=== PATIENT | male | born 1975 | race Caucasian/White ===

== ENCOUNTER 2020-04-04 13:21 | Outpatient (CLI) | payer OTHER, SELFPAY ==
--- NOTE | ~2020-04-04 | CT_ITS ---
EXAMINATION: CT abdomen wo con DATE: 04/04/2020 13:42 INDICATION: Ventral hernia TECHNIQUE: Computed tomography (CT) of the abdomen was performed without intravenous contrast. Automa fletcher exposure control and iterative reconstruction technique were employed. Exam dose: 1025.80 mGy-cm total exam DLP. COMPARISON: None. FINDINGS: The lung bases are clear. Normal heart size. No pericardial or pleural effusion. The liver, spleen, pancreas, and adrenal glands and kidneys are unremarkable on this limited noncontr ast examination normal caliber of the abdominal aorta. No intraperitoneal or retroperitoneal mass les ion or adenopathy or ascites is evident. No urinary tract calculus or hydroureteronephrosis is eviden t. There is an approximately 8.7 cm wide supraumbilical ventral midline abdominal wall hernia containing small bowel without obstruction or strangulation. No bowel obstruction, bowel wall thickening, pneum atosis or intraperitoneal free air is detected. Included skeletal structures are unremarkable. IMPRESSION: Supraumbilical small bowel containing midline ventral abdominal wall hernia Reviewed, dictated and finalized at [facility]. Reviewed, dictated and finalized at location [facility]. IMPRESSION: Supraumbilical small bowel containing midline ventral abdominal wa ll hernia
== END 2020-04-04 13:22 | disposition home or self-care (01) ==
LOC: ANHIMG 13:23
PROVIDERS: Visit Provider Surgery
DX: K43.9 Ventral hernia without obstruction or gangrene (principal)
CPT/HCPCS: 74150

== ENCOUNTER 2020-06-16 02:37 | Outpatient (CLI) | payer OTHER, SELFPAY ==
[2020-06-16 16:34] LABS: SARS-CoV-2 RNA PCR Negative
== END 2020-06-16 02:38 | disposition home or self-care (01) ==
LOC: ANHCOVIDDT 02:37
PROVIDERS: Visit Provider Surgery
DX: Z01.818 Encounter for other preprocedural examination (principal); Z11.59 Encounter for screening for other viral diseases
CPT/HCPCS: 87635; C9803; U0003

== ENCOUNTER 2020-06-16 08:23 | Outpatient (CLI) | payer OTHER, SELFPAY ==
[2020-06-16 08:55] LABS: Anion Gap 4 mmol/L (8-16); Blood Urea Nitrogen 12 mg/dL (9-20); Carbon Dioxide 36 mmol/L (22-30); Chloride 95 mmol/L (98-107); Estimated Glomerular Filt Rate > 60; Glucose 105 mg/dL (75-110); Potassium 4.8 mmol/L (3.4-5.0); Sodium 135 mmol/L (137-145)
--- NOTE | 2020-06-16 10:06 | ECG_ITS ---
Measurements Intervals [place] Rate: 77 P: 38 MN: 172 QRS: 41 QRSD: 90 T: 50 QT: 360 QTc: 408 Interpretive Statements SINUS RHYTHM DELAYED PRECORDIAL R/S TRANSITION BASELINE WANDER- V6 BORDERLINE ECG Electronically Signed On 06-16-2020 10:44:09 CDT by Zac Reza D.O.
== END 2020-06-16 08:24 | disposition home or self-care (01) ==
PROVIDERS: PCP Emergency Medicine; Visit Provider Surgery
DX: E11.9 Type 2 diabetes mellitus without complications (principal); Z87.891 Personal history of nicotine dependence
CPT/HCPCS: 36415; 80048; 86850; 86900; 86901; 87635; 93005; U0003

== ENCOUNTER 2020-06-19 11:57 | Observation (INO) | payer OTHER, SELFPAY ==
[2020-06-04 17:07] VITALS: BMI 55.9
[2020-06-18] VITALS (21 sets, daily range): BP systolic 93–163; BP diastolic 47–98; PULSE 78–104; RESP 12–24; TEMP 36.2–36.8; O2SAT 92–98
--- NOTE | 2020-06-18 07:19 | WPDHPUPDATE1 ---
History and Physical Update Update Date/Time: 06/18/20 07:19 History and Physical has been reviewed, including an updated exam of the patient. There are NO changes in the patient's condition. Risks, benefits, and alternatives have been discussed and questions answered. Patient agrees to proceed with procedure.
[2020-06-18] MEDS: LACTATED RINGERS 1,000 ML 30 ML IV CONT ×2 (07:20→11:08)
[2020-06-18] MEDS: KETOROLAC 15 MG/ML VIAL (*BKC) IV PUSH (07:21)
[2020-06-18] MEDS: ACETAMINOPHEN 500 MG TABLET 1000 MG PO ×2 (07:21→16:39)
--- NOTE | 2020-06-18 07:24 | WPDANESEPPF ---
Anes - Initial Pre Proc Eval Procedure: Operation Date: 06/18/20 07:30 Proposed Procedures p Laparoscopic Incarcerated Ventral Hernia Repair with Mesh, Davinci Assisted - Yogi Lopez DO Date/Time: 06/18/20 07:24 Surgeon: Yogi Lopez DO Pre Op Diagnosis: Incarcerated Ventral Hernia Patient Data Age: 44 Gender: M Height: 5 ft 11 in Weight: 182 kg Allergies Allergy/AdvReac Type Severity Reaction Status Date / Time codeine Allergy Severe mood swings Verified 06/18/20 07:08 Home Medications Medication Instructions Recorded Confirmed Type albuterol sulfate 90 mcg/actuation 1 inhalation INHALATION Q4H PRN 01/07/20 06/04/20 History aerosol inhaler omeprazole 20 mg capsule,delayed 20 mg PO DAILY 01/07/20 06/04/20 History release budesonide-formoterol [Symbicort] 2 puff INHALATION Q12H 06/04/20 06/04/20 History furosemide 20 mg PO DAILY 06/04/20 06/04/20 History lisinopril 5 mg PO DAILY 06/04/20 06/04/20 History metformin 500 mg PO DAILY 06/04/20 06/04/20 History montelukast 10 mg PO DAILY 06/04/20 06/04/20 History multivitamin [Daily Multi-Vitamin] 1 tablet PO DAILY 06/04/20 06/04/20 History Patient hx anesthesia problems: none Family hx anesthesia problems: none PMFSH Past Medical History Medical History Asthma Bronchitis GERD (gastroesophageal reflux disease) Seizure Thyroid disease Surgical History Surgical History Status post surgical removal of pilonidal cyst Family History Family History Mother Skin condition screening Social History Social History Smoking status: Smoker, status unknown Tobacco type: cigarettes and e-cigarettes/vaping Alcohol intake: never Substance use: never Living arrangements: with friend(s) Gender identity (if verbalized by the patient): Male Spiritual care concerns: No Anes - Eval Final PreProcedure Day of Procedure 06/18/20 07:24 Patient weight: super morbidly obese Heart: regular rate and rhythm Lungs: clear to auscultation Airway: Mallampati scale class II Neurological: alert and oriented Last oral intake: >/= 8 hours ASA classification: IV Emergent: no Anesthetic plan: proceed Anesthesia type and monitoring: general ETT and standard monitoring Informed Consent: The patient's anesthetic plan and its attendant risks including , [place], CVA, prolonged intubation, and ICU admission and benefits were discussed with the patient. Questions were solicited and answers provided to the satisfaction of the patient.
[2020-06-18] MEDS: ceFAZolin 3 GM/D5W 100 ML 100 ML IVPB (07:33)
[2020-06-18 07:34] LABS: Glucose Point of Care 124 (65-105)
--- NOTE | 2020-06-18 11:05 | PM.PROC ---
Procedure Note - Detailed Date of procedure: 06/18/20 Pre-op diagnosis: Incarcerated Ventral Hernia Post-op diagnosis: same Procedure performed: Laparoscopic incarcerated ventral hernia repair with Symbotex mesh, da Colleen assisted Description of procedure: Procedure as well as risks, benefits, and alternatives were discussed with the patient. Written consent was obtained and placed in chart prior to procedure. Patient was brought back to surgical suite. He was placed supine on operating table. Time-out was done to confirm patient and procedure. He was then intubated by the anesthesia department. His abdomen was prepped and draped in sterile fashion using chlorhexidine prep. A 5 millimeter incision was made in the left upper quadrant, and a 5 millimeter Optiview trocar was advanced through the abdominal layers under direct visualization. Once inside the abdominal cavity, carbon dioxide insufflation was used to create a pneumoperitoneum. His abdomen was inspected. An 8 millimeter incision was made in the left lower quadrant, and an 8 millimeter robotic trocar was placed under direct visualization. Another 8 millimeter incision was made in the left lateral abdomen, and an 8 millimeter robotic trocar was placed under direct visualization. Exparel was infiltrated along the lateral abdominal soto to perform a transversus abdominis plane block bilaterally. The 5 millimeter port was removed, the incision was extended to 12 millimeters, and a 12 millimeter air seal port was placed under direct visualization. A Connor-Gordon cone was also used to place an 0-Vicryl simple interrupted suture at this trocar site. The robotic arms were brought up to the patient's bedside and secured to the ports. The camera and instruments were inserted, and I then moved over to the robotic console and took control of the camera and instruments. After careful thorough inspection of the abdominal cavity, I began my dissection at the hernia. The incarcerated contents were reduced and then the hernia sac was carefully excised using hook electrocautery. I then measured the hernia size. The hernia measured 4 cm x 4 cm, and there was also a 2 cm umbilical hernia just inferior to this. The fascia was closed using a 1-Stratafix running suture in a vertical fashion. A 15 cm x 20 cm Symbotex mesh was then placed within the abdominal cavity. This was oriented vertically with the mesh centered on the hernia defect. The mesh was then secured along the perimeter using 2 0 V lock running absorbable suture. The repair was inspected, and one final inspection was made around the abdominal cavity. The robotic instruments were then removed, and the robotic arms were disengaged from the trocars. The ports were then removed under direct visualization, the camera was removed, and the pneumoperitoneum was released. The 0 Vicryl transfascial suture was tied down. The skin of the incisions was then approximated using 4-0 Monocryl subcuticular suture. Exofin glue was then applied on top. The patient was then awakened from anesthesia, extubated, and transferred to recovery. Implants: Symbotex mesh 15cm x 20cm Anesthesia: GETA and local (Exparel) Surgeon: Yogi Lopez DO Estimated blood loss (mL): 5 Drains: No Pathology: yes (Hernia sac) Complications: No immediate complications Condition: stable Disposition: observation Findings: Anil is a 44 y/o male who presents with a bulge above his umbilicus. He reports the bulge hurts with coughing, movement, and after meals. He can hear gurgling when the bulge reduces. He denies overlying skin changes. He reports having regular BM's without difficulty. CT abdomen w/o contrast was done at on 04/04/20 and showed a supraumbilical small bowel containing midline ventral abdominal wall hernia. He reports the bulge is very large and causes pain when he coughs or stands for too long. Discussions were made with the patient about his treatment options. I di
[2020-06-18 11:24] LABS: Glucose Point of Care 184 (65-105)
[2020-06-18] MEDS: fentaNYL CITRATE INJ (*CRX) 100 MCG/2 ML VIAL 25 MCG IV PUSH ×3 (11:58→13:27)
--- NOTE | 2020-06-18 12:11 | SUR.PHASEI ---
CARE ASSUMED OF PT. PT SITTING IN UPRIGHT POSITION, NRB MASK ON. OBSTRUCTING WHILE SITTING UPRIGHT. PT DOZING. SNORING. PT COLOR PALE, W,D. ABDOMEN OBESE, SOFT. MULTIPLE INCISIONS D/I. DR GARZA WAS NOTIFIED OF PT'S CONTINUING RESP STATUS PER KAMLA RN.
--- NOTE | 2020-06-18 12:25 | SUR.PHASEI ---
PT STATES PAIN 9/10 NOW. DOZING IN INTERVALS. REMAINS IN UPRIGHT POSITION. C/O LT SHOULDER PAIN/STIFFNESS. PT BECOMES SHORT OF BREATH WHILE TALKING. SNORES/OBSTRUCTS WHILE DOZING.
--- NOTE | 2020-06-18 12:30 | SUR.PHASEI ---
1228; DR GARZA AT BEDSIDE. PT C/O LT SHOULDER PAIN. STATES 'HE CANT LIFT ARM . DR GARZA EXPLAINING POSITIONING IN OR AND GAS IN ABDOMEN. PT C/O SOB. ALBUTEROL TX ORDERED. 1230; RESP THERAPY NOTIFIED.
--- NOTE | 2020-06-18 12:34 | SUR.PHASEI ---
RESP THERAPY HERE FOR ALBUTEROL TX
[2020-06-18] MEDS: ALBUTEROL SULFATE NEB 2.5 MG/0.5 ML INH INHALATION (12:35)
--- NOTE | 2020-06-18 12:43 | SUR.PHASEI ---
REPORT GIVEN TO KAMLA DAVID
--- NOTE | 2020-06-18 13:14 | SUR.PHASEI ---
[address] salas, and and dr ospina, they feel that the pt will benefit being in IMU to be closely monitored with breathing. pt is alertx3, vss on 4L nc.
[2020-06-18] MEDS: LACTATED RINGERS 1,000 ML 100 ML IV CONT (15:09)
--- NOTE | 2020-06-18 16:19 | ADMGEN ---
This patient, Anil Motta, was admitted to IMU Room 202 1410. Patient oriented to hospital policies and general routines including ID bracelet, bed and alarms, visiting hours, pain management, procedures, bathroom and other care routines, personal items, smoking policy, room service/diet, and visiting hours. Valuables list has been completed. Information on how to activate the Rapid Response Team has been discussed. Patient encouraged to report perceived risks to care and to ask questions he does not understand what is told or what
[2020-06-18] MEDS: ceFAZolin 2 GM/D5W 50 ML 2 GM/50 ML BAG IVPB (16:21)
--- NOTE | 2020-06-18 20:05 | PCRCNOTE ---
OBTAINED PT VITALS FOR INITIAL MDI INSTRUCTION AND FOUND PT ON RA WITH SPO2 33%, HR 91, AND APNEIC +30SECONDS. CALLED RN PRITESH WHO CONTACTED THE HOSPITALIST. PT WAS AWAKE AND ORIENTED X3 ON 6L NC WITH SPO2 94% WHEN RANDEE ESPARZA ARRIVED TO ROOM. PT REFUSED BIPAP/CPAP. FIO2 WEANED TO 4L NC WITH SPO2 92%.
--- NOTE | 2020-06-18 21:00 | WPDCN ---
Assessment and Plan Assessment and plan (1) Incarcerated ventral hernia: Code(s): K43.6 - Other and unspecified ventral hernia with obstruction, without gangrene Status: Acute (2) Obstructive sleep apnea: Code(s): G47.33 - Obstructive sleep apnea (adult) (pediatric) Status: Acute (3) Type 2 diabetes mellitus: Code(s): E11.9 - Type 2 diabetes mellitus without complications Status: Acute (4) Asthma: Code(s): J45.909 - Unspecified asthma, uncomplicated Status: Acute (5) Tobacco dependence: Code(s): F17.200 - Nicotine dependence, unspecified, uncomplicated Status: Acute (6) Morbid obesity: Code(s): E66.01 - Morbid (severe) obesity due to excess calories Status: Acute Additional Plan The hospitalist service has been consulted given oxygen desaturations while sleeping. He has a known history of obstructive sleep apnea and is intolerant to CPAP. We did discuss the importance of treating his sleep apnea and he continues to refuse CPAP. He voices understanding of the complications and implications of not treating his sleep apnea, but I am not certain he has good insight into his medical condition. As he is refusing CPAP, we will continue with nasal cannula and continuous pulse oximetry. Narcotics are being held at this time and he will be wakened should he have prolonged periods of desaturation. His blood pressures were reviewed and they are reasonably well controlled. Will initiate sliding scale insulin and check hemoglobin A1c in a.m. Thank you for allowing us to participate in this patient's care. Please do not hesitate to contact us with any questions. We will follow with you. Supervising physician for this medical consultation is Dr. Lauren Horton. [facility] Data of Consult Date/Time: 06/18/20 21:00 Requesting Physician: Yogi Lopez DO Primary Care Provider: Christian France MD Consult Narrative Narrative: Anil Motta is a 44-year-old morbidly obese male with type 2 diabetes mellitus, GERD, hypertension, and untreated obstructive sleep apnea whom the hospitalist service has been consulted for further evaluation of hypoxia while sleeping. He is status post repair of incarcerated ventral hernia per Dr. Lopez and he is complaining of only minimal discomfort at this time, rated 4/10. He was hypoxic in the PACU and was admitted to IMU for further evaluation, where he was found to have oxygen saturations in the 40s with periods of apnea up to 30 seconds, while sleeping. As soon as he is awake and his oxygen saturations do improve, and despite the addition of nasal cannula he continues to desaturate. He does have a history of obstructive sleep apnea but is intolerant to the CPAP, reporting claustrophobia, and he is not willing to try to wear the CPAP this evening. He has no other complaints and specifically denies fever, chills, sweats, chest pain, shortness of breath, nausea, and vomiting. He has no history of DVT or pulmonary embolism. No history of heart disease. Review of Systems Review of Systems: Narrative: Twelve systems were reviewed with pertinent positives and negatives as per HPI. No fever, chills, or sweats. No recent cold or flu symptoms. He has chronic dyspnea on exertion. He tells me he has no problems sleeping at night and he denies daytime somnolence. While I am in the room he falls asleep frequently in mid conversation. He is diabetic but he does not really check his glucose at home. He denies blurry vision, polydipsia, and polyuria. Except as documented, all other systems were reviewed and are negative. [facility] Past Medical History Medical History (Updated 06/19/20 @ 03:42 by Yecenia Kunz PA-C) Asthma Bronchitis Gastroesophageal reflux disease Morbid obesity Obstructive sleep apnea Untreated as he is intolerant to CPAP. Seizure As a child. Tobacco dependence Type 2 diabetes mellitus Surgical History Surgical History
[2020-06-18] MEDS: IBUPROFEN 400 MG TABLET 800 MG PO (21:02)
[2020-06-18] MEDS: ENOXAPARIN 30 MG/0.3 ML SYRINGE SUB-Q (21:10)
[2020-06-19] VITALS (16 sets, daily range): BP systolic 103–131; BP diastolic 30–74; PULSE 73–104; RESP 18–24; TEMP 36.1–37.6; O2SAT 91–100
--- NOTE | 2020-06-19 | ECHO_ITS ---
Patient Info Name: Anil Motta Age: 44 years : 1975 Gender: Male Ht: 71 in Wt: 440 lbs BSA: 3.28 m2 HR: 83 bpm BP: 131 / 74 mmHg Heart Rhythm: Sinus Rhythm Technical Quality: Poor Exam Date: 06/19/2020 2:23 PM Exam Location: [facility] Card Pulmonary Patient Status: Inpatient Admit Date: 06/19/2020 Staff Ordering Physician: Brenda Chin PA-C Manager Auto: Bridgette Galvan RDCS Attending Provider: Yogi Lopez DO Referring Physician: Giuseppe PETERSEN; Exam Type: CA echo dop color flow w con Study Info Indications - HX OF UNTREATED OBDULIA Complete two-dimensional, color flow and Doppler transthoracic echocardiogram is performed with contrast to opacify the left ventricle and to improve the deliniation of the left ventricle endocardial borders. Contrast/Agitated Saline Contrast/Ag. Saline: Definity Amount: 2.00 ml Administered By: Isadora Ramirez RN Existing IV Access: Yes IV Access Condition: patent with no signs of infiltration Reason for Poor Study: patient body habitus Summary 1. Left ventricular chamber dimension is mildly enlarged. 2. Left ventricular systolic function is hyperdynamic, estimated at >70%. 3. There is mildly increased left ventricular wall thickness. 4. Left ventricular septal wall motion is normal. 5. The left ventricular diastolic function is normal. 6. Left atrial chamber dimension is mildly enlarged. Left Ventricle Left ventricular chamber dimension is mildly enlarged. Left ventricular systolic function is hyperdynamic, estimated at >70%. There is mildly increased left ventricular wall thickness. Left ventricular septal wall motion is normal. The left ventricular diastolic function is normal. Right Ventricle Right ventricular chamber dimension is normal. Right ventricular systolic function is normal. Left Atria Left atrial chamber dimension is mildly enlarged. Right Atria Right atrial chamber dimension is normal. Atrial Septum Intact interatrial septum visualized by color flow imaging. Aortic Valve The aortic valve is trileaflet. There is no aortic valve sclerosis. There is no aortic valve stenosis. There is trace aortic valve regurgitation. Pulmonic Valve The pulmonic valve is normal. There is no pulmonic valve stenosis. There is trace pulmonic regurgitation. Mitral Valve The mitral valve has thickened leaflets. There is no mitral valve stenosis. There is trace mitral valve regurgitation. Tricuspid Valve The tricuspid valve leaflets are normal. There is no significant tricuspid valve stenosis. There is trace tricuspid valve regurgitation. Pericardium/Pleural The pericardium appears normal. There is no pericardial effusion. Inferior Vena Cava Normal inferior vena cava with <50% collapse upon inspiration consistent with normal right atrial pressure, 5 mmHg. Aorta The aortic root size at the sinus of Valsalva is normal. The prox ascending aorta size is normal. Left Ventricular Outflow Tract Name Value Normal LVOT 2D LVOT Diameter 2.13 cm LVOT Doppler
--- NOTE | ~2020-06-19 | XR_ITS ---
XR chest 1V portable 06/19/2020 15:22 Indication: Desaturations at night Procedure: AP portable chest Comparison: No prior studies for comparison. Findings: There is right perihilar and left basilar atelectasis. Cardiomegaly. No pleural effusion, e susie or pneumothorax. Impression: 1: Left basilar and right perihilar atelectasis. Reviewed, dictated and finalized at location A. Impression: 1: Left basilar and right perihilar atelectasis.
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
[2020-06-19] MEDS: ACETAMINOPHEN 500 MG TABLET 1000 MG PO ×4 (00:22→23:56)
[2020-06-19] MEDS: ceFAZolin 2 GM/D5W 50 ML 2 GM/50 ML BAG IVPB ×2 (00:23→07:36)
--- NOTE | 2020-06-19 00:31 | PCRCNOTE ---
G ATTEMPTED X3. PRITESH SLATER RN NOTIFIED THAT NOT ENOUGH BLOOD WAS OBTAINED FOR SAMPLE ANALYSIS.
[2020-06-19 05:18] LABS: Hematocrit 48.8 % (42.0-52.0); Hemoglobin 15.3 g/dL (14.0-18.0); Mean Corpuscular HGB Conc 31.4 g/dl (32-36); Mean Corpuscular Hemoglobin 27.1 pg (26-34); Mean Corpuscular Volume 86.4 fl (80-100); Mean Platelet Volume 10.7 fl (7.4-10.4); Platelet Count Result 238 k/mm3 (150-375); Red Blood Count 5.65 M/mm3 (4.6-6.20); Red Cell Distribution Width 15.2 % (11.5-14.5); White Blood Count 15.1 K/mm3 (4.5-10.0)
[2020-06-19 05:30] LABS: Anion Gap 4 mmol/L (8-16); Blood Urea Nitrogen 15 mg/dL (9-20); Calcium 8.6 mg/dL (8.4-10.2); Carbon Dioxide 31 mmol/L (22-30); Chloride 97 mmol/L (98-107); Estimated CRCL calculation 185 ml/min; Estimated Glomerular Filt Rate > 60; Glucose 183 mg/dL (75-110); Potassium 4.4 mmol/L (3.4-5.0); Sodium 132 mmol/L (137-145)
[2020-06-19 05:33] LABS: Alanine Aminotransferase 49 U/L (4-50); Albumin Level 3.8 g/dL (3.5-5.1); Alkaline Phosphatase 66 U/L (38-126); Aspartate Amino Transferase 152 U/L (17-59); Bilirubin,Total 0.3 mg/dL (0.2-1.3)
[2020-06-19 05:36] LABS: Hemoglobin A1C 6.2 % (<5.7)
[2020-06-19] MEDS: IBUPROFEN 400 MG TABLET 800 MG PO ×3 (06:11→20:21)
--- NOTE | 2020-06-19 07:31 | WPDANESPN ---
Anes - Prog Note Post-Op Date/Time: 06/19/20 07:31 Cardiovascular status: normal Respiratory status: normal Airway patency: baseline Mental status: baseline Post-Op hydration status: normal Vital Signs: Last Vital Signs Temp 36.6 C 06/19/20 04:00 Pulse 85 06/19/20 06:00 Resp 20 06/19/20 04:00 BP 127/63 06/19/20 04:00 Pulse Ox 100 06/19/20 04:00 Pain Score (VAS): 5 I/O: Intake & Output 06/18/20 06/18/20 06/19/20 15:59 23:59 07:59 Intake Total 448 969 1035 Output Total 2250 1150 Balance 400 -1700 550 Laboratory Tests 06/19/20 04:30 06/19/20 04:30 06/18/20 06/18/20 06/19/20 07:23 11:19 00:12 WBC RBC Hgb Hct MCV MCH MCHC RDW Plt Count MPV Puncture Site Pending ABG pH Pending ABG pCO2 Pending ABG pO2 Pending ABG PO2/FiO2 Ratio Pending ABG HCO3 Pending ABG O2 Saturation Pending ABG O2 Content Pending ABG Base Excess Pending A-a Gradient Pending Oxyhemoglobin Pending Carboxyhemoglobin Pending Methemoglobin Pending Reduced Hemoglobin Pending Total Hemoglobin Pending O2 Delivery Device Pending O2 Liters/Min Pending FiO2 Pending Sodium Potassium Chloride Carbon Dioxide Anion Gap BUN Creatinine Estim Creat Clear Calc Estimated GFR Glucose POC Capillary Glucose 124 H 184 H Hemoglobin A1c Calcium Total Bilirubin Direct Bilirubin AST ALT Alkaline Phosphatase Total Protein Albumin 06/19/20 06/19/20 06/19/20 04:30 04:30 04:30 WBC 15.1 H RBC 5.65 Hgb 15.3 Hct 48.8 MCV 86.4 MCH 27.1 MCHC 31.4 L RDW 15.2 H Plt Count 238 MPV 10.7 H Puncture Site ABG pH ABG pCO2 ABG pO2 ABG PO2/FiO2 Ratio ABG HCO3 ABG O2 Saturation ABG O2 Content ABG Base Excess A-a Gradient Oxyhemoglobin Carboxyhemoglobin Methemoglobin Reduced Hemoglobin Total Hemoglobin O2 Delivery Device O2 Liters/Min FiO2 Sodium 132 L Potassium 4.4 Chloride 97 L Carbon Dioxide 31 H Anion Gap 4 L BUN 15 Creatinine 0.80 Estim Creat Clear Calc 185 Estimated GFR > 60 Glucose 183 H POC Capillary Glucose Hemoglobin A1c Calcium 8.6 Total Bilirubin 0.3 Direct Bilirubin 0.0 AST 152 H ALT 49 Alkaline Phosphatase 66 Total Protein 7.0 Albumin 3.8 06/19/20 04:30 WBC RBC Hgb Hct MCV MCH MCHC RDW Plt Count MPV Puncture Site ABG pH ABG pCO2 ABG pO2 ABG PO2/FiO2 Ratio ABG HCO3 ABG O2 Saturation ABG O2 Content ABG Base Excess A-a Gradient Oxyhemoglobin Carboxyhemoglobin Methemoglobin Reduced Hemoglobin Total Hemoglobin O2 Delivery Device O2 Liters/Min FiO2 Sodium Potassium Chloride Carbon Dioxide Anion Gap BUN Creatinine Estim Creat Clear Calc Estimated GFR Glucose POC Capillary Glucose Hemoglobin A1c 6.2 H Calcium Total Bilirubin Direct Bilirubin AST ALT Alkaline Phosphatase Total Protein Albumin Post-procedural complaints: none Patient Feedback: Patient satisfied with anesthetic care.
[2020-06-19 07:54] LABS: Glucose Point of Care 125 (65-105)
[2020-06-19] MEDS: MONTELUKAST SODIUM 10 MG TABLET PO (07:54)
[2020-06-19] MEDS: FUROSEMIDE 20 MG TABLET PO (07:54)
[2020-06-19] MEDS: MULTIVITAMINS THERAPEUTIC TAB (*BKC) 1 TABLET PO (07:54)
[2020-06-19] MEDS: lisinopriL 5 MG TABLET PO (07:54)
[2020-06-19] MEDS: metFORMIN HCL 500 MG TABLET PO (07:54)
[2020-06-19] MEDS: ENOXAPARIN 30 MG/0.3 ML SYRINGE SUB-Q ×2 (07:55→20:21)
[2020-06-19] MEDS: polyethylene glycoL 3350 17 GM POWD.PACK PO (07:55)
--- NOTE | 2020-06-19 09:10 | PM.IMPN ---
Progress Note: A&P Assessment and Plan (1) Incarcerated ventral hernia: Code(s): K43.6 - Other and unspecified ventral hernia with obstruction, without gangrene Status: Acute Assessment and Plan: He is s/p laparoscopic incarcerated ventral hernia repair by Dr. Lopez 06/18/20. He reports that his pain is well-controlled and he is doing well post-op. He is tolerating his diet. Post-op care, DVT prophylaxis, and disposition per Dr. Lopez. (2) Obstructive sleep apnea: Code(s): G47.33 - Obstructive sleep apnea (adult) (pediatric) Status: Acute Assessment and Plan: Untreated due to non-compliance. He reports that he has seen 4 sleep apnea specialists and he is supposed to wear a CPAP due to OBDULIA but adamantly refuses therapy despite extensive education by multiple providers. I spent extensive time discussing the adverse cardiopulmonary outcomes of untreated OBDULIA including pulmonary hypertension, CHF, and . STOP BANG score is 7/8. He was placed on nasal cannula with continuous pulse oximetry overnight and did desaturate but states he will not wear CPAP/BIPAP. Oxygen is 98% on room air while awake. Narcotics are on hold and he should not take narcotics at home. Will order home oxygen evaluation. I spoke with respiratory therapy to see if they could arrange overnight pulse oximetry for home if he discharges today. Discussed with Dr. Galdamez and she will see him outpatient for a formal sleep study and further evaluation if he is agreeable. (3) Type 2 diabetes mellitus: Code(s): E11.9 - Type 2 diabetes mellitus without complications Status: Chronic Assessment and Plan: Hemoglobin A1c was at target at 6.2%. Continue [facility] glucose monitoring, SSI, and hypoglycemia protocol. Blood sugars were reviewed and are at target. (4) Asthma: Code(s): J45.909 - Unspecified asthma, uncomplicated Status: Chronic Assessment and Plan: Chronic. Continue albuterol and symbicort. (5) Tobacco dependence: Code(s): F17.200 - Nicotine dependence, unspecified, uncomplicated Status: Chronic Assessment and Plan: Continue to encourage smoking cessation. It is imperative that he stop smoking immediately. The adverse reactions were discussed at length. (6) Morbid obesity: Code(s): E66.01 - Morbid (severe) obesity due to excess calories Status: Chronic Assessment and Plan: Continue to encourage dietary interventions and exercise. He may benefit from consultation with bariatric surgery in the outpatient setting. (7) Hypertension: Code(s): I10 - Essential (primary) hypertension Status: Chronic Assessment and Plan: Blood pressure control is reasonable. Continue lisinopril and furosemide. Subjective Date/time seen: 06/19/20 09:10 Mr. Motta is a 44 y.o. male who is s/p laparoscopic incarcerated ventral hernia repair by Dr. Lopez 06/18/20. He has a known hx of OBDULIA but refuses CPAP. He was noted to have oxygen desaturations while sleeping. He reports that he feels well today. He slept fine and he has no complaints of dyspnea. He denies chest pain, cough, fever, chills, and pleuritic pain. He reports incisional post-op pain but this is significantly better compared to yesterday. He is voiding without any issues and tolerating his diet well. He is eager to get up and walk. Review of Systems Review of Systems: All systems reviewed & are unremarkable except as noted in HPI and below Exam Narrative: Exam Narrative: General: Morbidly obese (BMI 61.5), well-developed 44 y.o. male sitting at the side of the bed eating in no acute distress. HEENT: Normocephalic and atraumatic. Sclerae anicteric. Conjunctivae and lids normal. PERRL. EOMI. Oral mucosa moist. Crowded oropharynx. Neck: Large neck circumference. Supple without lymphadenopathy or masses. Cardiac: Regular rate and rhythm. S1 and S2 normal. Telemetry r
--- NOTE | 2020-06-19 11:10 | HOMEO2EVAL ---
Home Oxygen Evaluation RC: Home Oxygen (O2) Evaluation Start: 06/19/20 10:15 Freq: ONCE Status: Active Protocol: RPE Activity Type Activity Date Activity User E-Sign Co-Sign Detail Recorded Client Recorded Date Recorded By Document 06/19/20 10:50 [email or web address] [email or web address] 06/19/20 11:10 DJO Document 06/19/20 10:55 [email or web address] [email or web address] 06/19/20 11:10 DJO Document 06/19/20 11:05 [email or web address] [email or web address] 06/19/20 11:10 DJO 06/19/20 06/19/20 06/19/20 10:50 10:55 11:05 Home O2 Evaluation Test Phase Resting Exercise Resting Oxygen Delivery Room Air Room Air Room Air Pulse Oximetry (90-100 %) 94 95 94 Pulse Rate (60-100 beats/min) 85 104 H 86 Activity Tolerance Poor Rating of Perceived Dyspnea (PD) +1 Mild, Noticeable to the Participant but Not to an Observer Treatment Charges O2 Evaluation
--- NOTE | 2020-06-19 11:10 | PCRCNOTE ---
HOME O2 EVAL COMPLETE, NO REQUIREMENTS
--- NOTE | 2020-06-19 11:30 | PM.PNGS ---
Progress Note: A&P Assessment and Plan (1) Incarcerated ventral hernia: Code(s): K43.6 - Other and unspecified ventral hernia with obstruction, without gangrene Status: Acute Assessment and Plan: Still not getting up and ambulating on his own. Pain improving. Will have PT/OT eval for possible walker to go home. May need to stay 1 more day to improve mobility to be able to be safe at home on his own. (2) BMI 50.0-59.9, adult: Code(s): Z68.43 - Body mass index (BMI) 50.0-59.9, adult Status: Acute (3) Obstructive sleep apnea: Code(s): G47.33 - Obstructive sleep apnea (adult) (pediatric) Status: Acute Subjective Subjective Date/Time Seen: 06/19/20 11:30 Patient not able to ambulate much yet. Pain improving except when leaning or bending over. Feels a little bloated and belching a lot. Exam GI: Inspection: incision (glue intact without bleeding) GI Palp: Yes Tenderness to palpation present (GI) (mid abdominal) Objective Data Vital Signs Vital Signs: Vital Signs - 24 hr 06/18/20 11:40 06/18/20 11:55 06/18/20 12:15 Temperature Pulse Rate 82 90 98 Respiratory Rate 12 18 18 Blood Pressure 143/87 H 130/70 117/74 Pulse Oximetry 93 94 98 06/18/20 12:30 06/18/20 12:35 06/18/20 12:45 Temperature Pulse Rate 85 85 86 Respiratory Rate 20 20 18 Blood Pressure 123/79 103/82 Pulse Oximetry 94 93 06/18/20 12:48 06/18/20 13:00 06/18/20 13:15 Temperature Pulse Rate 90 82 86 Respiratory Rate 20 16 20 Blood Pressure 134/97 H 110/98 H Pulse Oximetry 94 96 06/18/20 13:29 06/18/20 14:15 06/18/20 15:00 Temperature 36.2 C L Pulse Rate 78 84 Respiratory Rate 16 20 16 Blood Pressure 125/94 H 121/57 L Pulse Oximetry 92 96 96 06/18/20 16:00 06/18/20 17:00 06/18/20 18:00 Temperature 36.8 C Pulse Rate 89 87 Respiratory Rate 18 Blood Pressure 163/57 H Pulse Oximetry 93 94 93 06/18/20 20:00 06/18/20 20:05 06/18/20 22:00 Temperature 36.7 C Pulse Rate 91 104 H 78 Respiratory Rate 24 H 22 H Blood Pressure 106/88 Pulse Oximetry 92 92 06/19/20 00:00 06/19/20 02:00 06/19/20 04:00 Temperature 36.7 C 36.6 C Pulse Rate 87 88 94 Respiratory Rate 24 H 20 Blood Pressure 104/30 L 127/63 Pulse Oximetry 97 100 06/19/20 06:00 06/19/20 07:41 06/19/20 07:59 Temperature 37.6 C Pulse Rate 85 77 Respiratory Rate 22 H Blood Pressure 103/43 L Pulse Oximetry 97 97 06/19/20 08:00 06/19/20 08:18 06/19/20 10:00 Temperature Pulse Rate 77 86 98 Respiratory Rate 20 Blood Pressure Pulse Oximetry 98 06/19/20 10:50 06/19/20 10:55 06/19/20 11:05 Temperature Pulse Rate 85 104 H 86 Respiratory Rate Blood Pressure Pulse Oximetry 94 95 94 Intake/Output Intake/Output: Intake & Output 06/16/20 06/17/20 06/18/20 06/19/20 23:59 23:59 23:59 23:59 Intake Total 950 1750 Output Total 2250 1150 Balance -1300 600 Meds/Results Medications: Active Medications Generic Name Dose Route Start Last Admin Trade Name Freq PRN Reason Stop Dose Admin Acetaminophen 1,000 mg 06/18/20 18:00 06/19/20 06:12 Tylenol Tablet PO Not Given Q6H DYLON Albuterol 2 puff 06/18/20 13:59 Proventil Hfa INHALATION Q4H PRN Shortness Of Breath Budesonide/Formoterol Fumarate 2 puff 06/18/20 20:00 06/19/20 08:14 Symbicort 80-4.5 Mcg (*Sp) Inhaler INHALATION 2 puff Q12HRT DYLON Administration Dextrose 12.5 gm 06/19/20 03:46 Dextrose 50% Syringe IV PUSH PRN PRN Hypoglycemia Protocol Enoxaparin Sodium 30 mg 06/18/20 21:00 06/19/20 07:55 Lovenox SUB-Q 30 mg Q12HR DYLON Administration Furosemide 20 mg 06/19/20 09:00 06/19/20 07:54 Lasix Tablet PO 20 mg DAILY DYLON Administration Glucagon 1 mg 06/19/20 03:46 Glucagon For Inj IM PRN PRN Hypoglycemia Protocol Glucose 15 gm 06/19/20 03:46 Glutose 15 PO PRN PRN Hypogl
[2020-06-19 11:48] LABS: Glucose Point of Care 101 (65-105)
[2020-06-19] MEDS: PERFLUTREN LIPID MICROSPHERES 1.5 ML VIAL DILUTED TO 10 ML TOTAL VOLUME IV PUSH (14:58)
--- NOTE | 2020-06-19 15:15 | PC.NURSE ---
Patient downgraded to medical. Telemetry box removed, patient travelled up to 311 via bed with all belongings. Report given to FRANKIE Nath.
--- NOTE | 2020-06-19 15:24 | PC.NURSE ---
This patient, Anil Motta, was received from [IMU ] on 06/19/20 at 1515. Personal belongings list checked and signed. Patient/family oriented to unit policies and routines
[2020-06-19 15:57] LABS: Hepatitis B Surface Antigen Negative (Negative)
[2020-06-19 16:03] LABS: HAV RESULT Negative (Negative); Hepatitis B Core IgM Result Negative (Negative)
[2020-06-19 16:15] LABS: Hepatitis C Virus Antibody Negative (Negative)
[2020-06-19] MEDS: ALBUTEROL SULFATE (*SP) AEROSOL 1 PUFF 2 PUFF INHALATION (17:26)
[2020-06-19 17:49] LABS: Glucose Point of Care 117 (65-105)
--- NOTE | 2020-06-19 21:10 | PC.NURSE ---
PT complaining of pain, but unwilling to try repositioning, ice refused, unwilling to wear 02 with low saturation. Offered pt antiemetic for nausea, but pt states he does not want, but he does want someone to burp him like a baby . Pt appears anxious. Tried to offer emotional support by listening and offering helpful suggestions. PT does not want assistance with medications or 02 at this time.
[2020-06-19 22:02] LABS: Glucose Point of Care 137 (65-105)
[2020-06-20] VITALS: BP 128/80; PULSE 84; RESP 20; TEMP 36.2; O2SAT 99
[2020-06-20] MEDS: ALBUTEROL SULFATE (*SP) AEROSOL 1 PUFF 2 PUFF INHALATION ×3 (01:57→16:03)
[2020-06-20 04:00] VITALS: BP 104/66; PULSE 86; RESP 20; TEMP 36.3; O2SAT 98
[2020-06-20 06:20] LABS: Basophils Absolute Auto 0.1 K/mm3 (0.0-0.1); Basophils Percent Auto 0.7 % (0.2-1.2); Eosinophils Absolute Auto 0.3 K/mm3 (0-0.3); Hematocrit 48.1 % (42.0-52.0); Immature Granulocyte Absolute 0.05 K/mm3 (0.00-0.031); Immature Granulocyte Percent A 0.5 % (0-0.5); Lymphocytes Absolute Auto 1.53 K/mm3 (0.9-3.2); Lymphocytes Percent Auto 14.6 % (18.3-44.2); Mean Corpuscular HGB Conc 31.2 g/dl (32-36); Mean Corpuscular Hemoglobin 27.7 pg (26-34); Mean Corpuscular Volume 88.9 fl (80-100); Mean Platelet Volume 10.8 fl (7.4-10.4); Monocytes Absolute Auto 0.8 K/mm3 (0.1-0.6); Monocytes Percent Auto 7.6 % (2.6-8.5); Neutrophils Absolute Auto 7.7 K/mm3 (1.3-6.7); Neutrophils Percent Auto 73.6 % (45.5-73.1); Platelet Count Result 208 k/mm3 (150-375); Red Blood Count 5.41 M/mm3 (4.6-6.20); Red Cell Distribution Width 15.2 % (11.5-14.5); White Blood Count 10.5 K/mm3 (4.5-10.0)
[2020-06-20] MEDS: IBUPROFEN 400 MG TABLET 800 MG PO ×2 (06:23→13:50)
[2020-06-20] MEDS: ACETAMINOPHEN 500 MG TABLET 1000 MG PO ×2 (06:23→12:19)
--- NOTE | 2020-06-20 06:44 | PC.NURSE ---
Walked in to pt room and found him with a vaping device in his mouth. Pt upset that I took it from him stating he doesnt use it that much and that he was allowed to have it downstairs. Informed pt of not tobacoo policy and locked it in the safe.
[2020-06-20 07:47] VITALS: O2SAT 93
[2020-06-20 07:50] LABS: Anion Gap 3 mmol/L (8-16); Blood Urea Nitrogen 14 mg/dL (9-20); Calcium 8.5 mg/dL (8.4-10.2); Carbon Dioxide 35 mmol/L (22-30); Chloride 97 mmol/L (98-107); Estimated CRCL calculation 181 ml/min; Estimated Glomerular Filt Rate > 60; Glucose 122 mg/dL (75-110); Potassium 4.6 mmol/L (3.4-5.0); Sodium 135 mmol/L (137-145)
[2020-06-20] MEDS: polyethylene glycoL 3350 17 GM POWD.PACK PO (08:49)
[2020-06-20] MEDS: metFORMIN HCL 500 MG TABLET PO (08:50)
[2020-06-20] MEDS: FUROSEMIDE 20 MG TABLET PO (08:50)
[2020-06-20] MEDS: ENOXAPARIN 30 MG/0.3 ML SYRINGE SUB-Q (08:50)
[2020-06-20] MEDS: MULTIVITAMINS THERAPEUTIC TAB (*BKC) 1 TABLET PO (08:50)
[2020-06-20] MEDS: MONTELUKAST SODIUM 10 MG TABLET PO (08:50)
[2020-06-20] MEDS: lisinopriL 5 MG TABLET PO (08:50)
[2020-06-20 09:19] LABS: Glucose Point of Care 132 (65-105)
--- NOTE | 2020-06-20 09:47 | PM.DS ---
DS: Admitting Diagnosis Admitting Diagnosis Admitting Diagnosis: Incarcerated Ventral Hernia DS: Discharge Diagnosis Discharge Diagnosis (1) Incarcerated ventral hernia: Code(s): K43.6 - Other and unspecified ventral hernia with obstruction, without gangrene Status: Acute (2) Obstructive sleep apnea: Code(s): G47.33 - Obstructive sleep apnea (adult) (pediatric) Status: Acute (3) Tobacco dependence: Code(s): F17.200 - Nicotine dependence, unspecified, uncomplicated Status: Chronic (4) BMI 50.0-59.9, adult: Code(s): Z68.43 - Body mass index (BMI) 50.0-59.9, adult Status: Acute DS: Summary Hospital Course Reason for hospitalization: Incarcerated ventral hernia Hospital Course: this is a 44-year-old man who presented with an incarcerated ventral hernia. He was seen in the office and a CT was ordered which showed evidence of a ventral hernia containing small bowel. He underwent robotic assisted laparoscopic repair on 06/18/2020. Due to the significant size of the hernia and his comorbidities, he was admitted to the hospital for postoperative recovery and pain control. He has a significant history severe morbid obesity with a BMI of 60 and obstructive sleep apnea. Due to his respiratory difficulties, he was admitted to the IMU postoperatively. His oxygen saturations and color television console monitor were observed carefully postoperatively. He did seem to desat very easily when he would fall asleep. Hospitalist was consulted to help with treating his medical conditions during his postoperative period. On postop day 1, his pain was controlled but he was not able to ambulate very much. Physical/occupational therapy was ordered to evaluate patient and aid with mobility. Care coordination helped with discharge planning. He was in need a walker to help with ambulation at home. Attempts were also made at arranging for home health in the early postoperative period. On postop day 2 his pain was better controlled and he was able to get up out of his chair with minimal assistance. He was tolerating his diet and remaining hemodynamically stable. His breathing was stable. He was discharged on postop day 2. Time spent discussing smoking cessation with patient: 3 to 10 minutes Status at Discharge Functional status at discharge: uses cane/walker Overall status at discharge: patient is progressing back to baseline Time Spent with Patient Time attestation: Total time spent providing and/or coordinating discharge services: Time spent: Less than 30 minutes Exam Const: General: comfortable and no acute distress Neck: Neck: supple and no JVD Resp: Effort & Inspection: normal respiratory effort Auscultation: clear to auscultation bilaterally Cardio: Rate: regular rate Rhythm: regular rhythm GI: GI Palp: Yes Soft to palpation and Yes Tenderness to palpation present (GI) ( Midline supraumbilical) Auscultation: normal bowel sounds Other: incisions healing well Skin: General skin exam: normal color Psych: Mental Status: mental status grossly normal DS: Data Data Completed and Pending Pending studies at discharge: Pending at discharge 06/18/20 09:05 Surgical [PTH] Routine Labs on day of discharge: Labs from last 24 hours 06/20/20 06/20/20 06/20/20 08:46 06:01 06:01 WBC 10.5 H RBC 5.41 Hgb 15.0 Hct 48.1 MCV 88.9 MCH 27.7 MCHC 31.2 L RDW 15.2 H Plt Count 208 MPV 10.8 H Immature Gran % (Auto) 0.5 Neut % (Auto) 73.6 H Lymph % (Auto) 14.6 L Barton % (Auto) 7.6 Eos % (Auto) 3.0 Baso % (Auto) 0.7 Lymph # (Auto) 1.53 Barton # (Auto) 0.8 H Eos # (Auto) 0.3 Baso # (Auto) 0.1 Abs Immat Gran (auto) 0.05 H Absolute Neuts (auto) 7.7 H Absolute Nucleated RBC 0.0 Nucleated RBC % 0.0 Sodium 135 L Potassium 4.6 Chloride 97 L Carbon Dioxide 35 H Anion Gap 3 L BUN 14 Creatinine 0.80 Estim Creat Clear
[2020-06-20 12:43] LABS: Glucose Point of Care 107 (65-105)
--- NOTE | 2020-06-20 13:28 | PM.IMPN ---
Progress Note: A&P Assessment and Plan (1) Incarcerated ventral hernia: Code(s): K43.6 - Other and unspecified ventral hernia with obstruction, without gangrene Status: Acute Assessment and Plan: He is s/p laparoscopic incarcerated ventral hernia repair by Dr. Lopez 06/18/20. He reports that his pain is well-controlled and he is doing well post-op. He is tolerating his diet. Post-op care, DVT prophylaxis, and disposition per Dr. Lopez. (2) Obstructive sleep apnea: Code(s): G47.33 - Obstructive sleep apnea (adult) (pediatric) Status: Acute Assessment and Plan: Untreated due to non-compliance. He reports that he has seen 4 sleep apnea specialists and he is supposed to wear a CPAP due to OBDULIA but adamantly refuses therapy despite extensive education by multiple providers. I spent extensive time discussing the adverse cardiopulmonary outcomes of untreated OBDULIA including pulmonary hypertension, CHF, and . STOP BANG score is 7/8. He was placed on nasal cannula with continuous pulse oximetry overnight and did desaturate but states he will not wear CPAP/BIPAP. Apnea link revealed high probability for a pathological breathing disorder. Discussed with respiratory therapy and he can set up a home sleep study with [facility]. Echo was performed and showed: 1. Left ventricular chamber dimension is mildly enlarged. 2. Left ventricular systolic function is hyperdynamic, estimated at >70%. 3. There is mildly increased left ventricular wall thickness. 4. Left ventricular septal wall motion is normal. 5. The left ventricular diastolic function is normal. 6. Left atrial chamber dimension is mildly enlarged. I discussed the case with Dr. Galdamez and she will see him outpatient for a formal sleep study and further evaluation if he is agreeable. (3) Type 2 diabetes mellitus: Code(s): E11.9 - Type 2 diabetes mellitus without complications Status: Chronic Assessment and Plan: Hemoglobin A1c was at target at 6.2%. Continue [facility] glucose monitoring, SSI, and hypoglycemia protocol. Blood sugars were reviewed and are at target. (4) Asthma: Code(s): J45.909 - Unspecified asthma, uncomplicated Status: Chronic Assessment and Plan: Chronic. Continue albuterol and symbicort. (5) Tobacco dependence: Code(s): F17.200 - Nicotine dependence, unspecified, uncomplicated Status: Chronic Assessment and Plan: Continue to encourage smoking cessation. It is imperative that he stop smoking immediately. The adverse reactions were discussed at length. (6) Morbid obesity: Code(s): E66.01 - Morbid (severe) obesity due to excess calories Status: Chronic Assessment and Plan: Continue to encourage dietary interventions and exercise. He may benefit from consultation with bariatric surgery in the outpatient setting. (7) Hypertension: Code(s): I10 - Essential (primary) hypertension Status: Chronic Assessment and Plan: Blood pressure control is reasonable. Continue lisinopril and furosemide. Subjective Date/time seen: 06/20/20 13:28 Mr. Motta is a 44 y.o. male who is s/p laparoscopic incarcerated ventral hernia repair by Dr. Lopez 06/18/20 and seen in follow-up for post-op medical management. He feels well today and is eager to go home. He reports that his pain is well-controlled and he was seen ambulating with a walker in the room. He denies chest pain, dyspnea, and cough. He denies nausea and vomiting. He is tolerating his diet well. He denies subjective fever and chills. His incisions are healing well. He slept well overnight. Review of Systems Review of Systems: All systems reviewed & are unremarkable except as noted in HPI and below Exam Narrative: Exam Narrative: General: Morbidly obese, well-developed 44 y.o. male sitting in the chair at the bedside in no acute distress. HEENT: Nor
[2020-06-20 14:00] VITALS: BP 136/70; PULSE 90; RESP 22; TEMP 37.2; O2SAT 93
--- NOTE | 2020-06-20 14:55 | PCRCNOTE ---
SPOKE TO SURINDER IN REGARD TO HOME CPAP UNIT NEEDS. POSSIBLY A BILEVEL UNIT COULD BE MORE TOLERABLE. WE COULD GET HIM STARTED ON THE PATH OF A NEW HOME SLEEP STUDY AND A NEW CPAP/BIPAP UNIT AND RETRY THESE OPTIONS DUE TO HIS NEED FOR PAP THERAPY. PT REFUSING ALL HOME PAP MACHINES. STATES HE CANNOT TOLORATE ANYTHING ON HIS FACE OR NOSE AND WILL NOT WEAR IT. HE HAS WORN CPAP AND BIPAP AND CANNOT WEAR. PT SEES DR. DING, [employer] ATTEND[employer]. JUST RECEIVED NEW MAINTENANCE MED WITH RECENT VIDEO OFFICE VISIT AND IS TO FOLLOW UP IN A FEW WEEKS.
== END 2020-06-20 17:45 | disposition home health service (06) ==
LOC: ANHSURGERY 12:15 → ANHIMU 12:15 → ANH3MEDSUR 15:02
PROVIDERS: Physician Assistant; Admitting Provider Surgery; PCP Emergency Medicine; Visit Provider Surgery
PROC: (CPT 49653; principal; 2020-06-18 07:30)
DX: K43.6 Other and unspecified ventral hernia with obstruction, without gangrene (principal); E66.01 Morbid (severe) obesity due to excess calories; Z68.43 Body mass index [BMI] 50.0-59.9, adult; G47.33 Obstructive sleep apnea (adult) (pediatric); E11.9 Type 2 diabetes mellitus without complications; J45.909 Unspecified asthma, uncomplicated; J96.01 Acute respiratory failure with hypoxia; K21.9 Gastro-esophageal reflux disease without esophagitis; F17.210 Nicotine dependence, cigarettes, uncomplicated; R10.9 Unspecified abdominal pain; Z91.19 Patient's noncompliance with other medical treatment and regimen; Z79.4 Long term (current) use of insulin; Z79.899 Other long term (current) drug therapy
CPT/HCPCS: 49653; S2900; 36415; 36600; 71045; 80048; 80074; 80076; 82375; 82805; 83036; 83050; 85025; 85027; 88300; 94618; 94640; 94762; 97161; 97165; A9270; C1781; C8929; C9290; G0378; G0379; J0330; J0690; J1100; J1650; J1885; J2250; J2405; J2704; J3010; J7030; J7120; Q9957